=== PATIENT | male | born 1985 | race Caucasian/White ===

== ENCOUNTER 2016-08-16 09:28 | Emergency (ER) | payer SELFPAY ==
[2016-08-16] MEDS ORDERED: LIDOCAINE 1% 10 ML VIAL INJ ONE (09:35)
[2016-08-16 09:56] VITALS: TEMP 98.5
--- NOTE | 2016-08-16 10:08 | ED.PDOC ---
History of Present Illness - General Chief Complaint: Laceration Time Seen by Provider: 08/16/16 09:31 Source: patient Exam Limitations: no limitations - History of Present Illness Initial Comments: the patient is a 31-year-old male presenting to the emergency room secondary to laceration to the dorsal aspect of the second digit of his left hand. Laceration is U-shaped over the proximal interphalangeal joint. There are no tendon lacerations. Sensation appears to be preserved distally. There is moderate bleeding. Estimated blood loss approximately 20 cc. No other injuries. This did occur at work where he accidentally hit it with a head wood grinder. Timing/Duration: momentarily Severity: moderate Improving Factors: nothing Worsening Factors: nothing Associated Symptoms: denies symptoms Home Medications: Ambulatory Orders Sulfa/Trimeth 800/160 (Ds) Tab [Bactrim DS Tab] 1 ea PO BID #10 tab 08/16/16 Review of Systems - Review of Systems Constitutional: States: no symptoms reported EENTM: States: no symptoms reported Respiratory: States: no symptoms reported Cardiology: States: no symptoms reported Gastrointestinal/Abdominal: States: no symptoms reported Genitourinary: States: no symptoms reported Musculoskeletal: States: see HPI Skin: States: see HPI Neurological: States: no symptoms reported Endocrine: States: no symptoms reported All other Systems: No Change from Baseline Past Medical History (General) - Patient Medical History Hx Stroke: No Hx Congestive Heart Failure: No Hx Diabetes: No - Vaccination History Hx Tetanus, Diphtheria Vaccination: Yes Hx Influenza Vaccination: No Hx Pneumococcal Vaccination: No - Social History Hx Tobacco Use: Yes Family Medical History - Family History Father Family History: No Known Living Status: Still Living Physical Exam - Physical Exam General Appearance: Alert, Comfortable, No apparent distress Eye Exam: bilateral normal Ears, Nose, Throat: hearing grossly normal, normal ENT inspection Neck: full range of motion Respiratory: no respiratory distress, no accessory muscle use Cardiovascular/Chest: normal peripheral pulses, no edema Peripheral Pulses: radial,right: 2+, radial,left: 2+ Extremity: normal range of motion, no pedal edema, no calf tenderness, normal capillary refill - flexion and extension of the finger is preserved., other - see history of present illness for the finger. Length of laceration in the shape is approximately 2.3 cm. Neurologic: no motor/sensory deficits, alert, normal mood/affect Skin Exam: normal color - ith the exception of a laceration Comments: Vital Signs - 24 hr 08/16/16 09:30 Temperature 98.5 F Pulse Rate [ 98 H Right Radial] Respiratory 20 Rate Blood Pressure 151/125 [Right Arm] O2 Sat by Pulse 98 Oximetry Progress - Progress Progress: 08/16/16 10:08 the patient is a 31-year-old male presenting with a laceration over the proximal interphalangeal joint of the second digit of the left hand. Motor function of the digit appears to be intact. The patient has deferred x-rays of the finger. Digital block was performed after risks and benefits were explained of the repair. Digital block consisted of Xylocaine without epinephrine 9 cc. Estimated blood loss in total approximately 20 cc. Wound is irrigated with water and then with sterile saline. Sterile saline mount used is 800 cc. 4 simple sutures of 3-0 Ethilon were used for reapproximation. Good hemostasis was achieved. Tourniquet was removed. Patient tolerated the repair well. He received a dose of Bactrim here and will be placed on Bactrim twice daily for the next 5 days. ER warnings were given for any evidence of infection. Sutures need to come out in approximately 10 days. He should keep the wound covered with a Band-Aid and Neosporin ointment for that time. He needs to avoid flexing the digit so that he does not pull the sutures out. A finger splint has been provided. ER warnings were given for any acute worsening. Departure - Departure Clinical Impression: Laceration Disposition: Discharge to Home or Self Care Condition: Fair Departure Forms: ED Discharge - Pt. Copy, Patient Portal Self Enrollment Instructions: DI for Laceration Repair -- Finger Diet: regular diet Activity: increase activity as tolerated Prescriptions: Sulfa/Trimeth 800/160 (Ds) Tab [Bactrim DS Tab] 1 ea PO BID #10 tab Home Medications: Ambulatory Orders Sulfa/Trimeth 800/160 (Ds) Tab [Bactrim DS Tab] 1 ea PO BID #10 tab 08/16/16 Additional Instructions: the patient is a 31-year-old male presenting with a laceration over the proximal interphalangeal joint of the second digit of the left hand. Motor function of the digit appears to be intact. The joint does not appear to have been penetrated. 4 simple sutures of 3-0 Ethilon were used for reapproximation. Good hemostasis was achieved. Patient tolerated the repair well. He received a dose of Bactrim here and will be placed on Bactrim twice daily for the next 5 days. ER warnings were given for any evidence of infection. Sutures need to come out in approximately 10 days. He should keep the wound covered with a Band-Aid and Neosporin ointment for that time. He needs to avoid flexing the digit so that he does not pull the sutures out. A finger splint has been provided. ER warnings were given for any acute worsening.
[2016-08-16 10:09] VITALS: BP 123/79; O2SAT 100
== END 2016-08-16 10:25 | disposition home or self-care (01) ==
LOC: ER 09:28
DX: S61.211A Laceration without foreign body of left index finger without damage to nail, initial encounter (principal); Z87.891 Personal history of nicotine dependence; W31.89XA Contact with other specified machinery, initial encounter; Y99.0 Civilian activity done for income or pay